=== PATIENT | female | born 1960 | race African-American/Black ===

== ENCOUNTER 2020-10-24 01:44 | Emergency (ER) | payer OTHER | END 2020-10-24 03:20 | disposition home or self-care (01) | LOC: FER 01:44 | DX: K11.20 Sialoadenitis, unspecified (principal); I10 Essential (primary) hypertension; E11.9 Type 2 diabetes mellitus without complications; Z88.0 Allergy status to penicillin; Z91.040 Latex allergy status | CPT/HCPCS: 99283 ==

== ENCOUNTER 2021-01-09 19:09 | Emergency (ER) | payer OTHER ==
[2021-01-09 19:48] LABS: BASOPHIL 0.4 % (0-2); EOSINOPHIL 1.3 % (0-5); HCT 46.2 % (37.0-47.0); HGB 15.7 g/dl (12.5-16.0); LYMPHOCYTE 44.4 % (15-48); MCH 29.7 pg (25.0-31.0); MCV 87.3 fL (78.0-100.0); MONOCYTE 5.7 % (0-12); MPV 10.1 fL (6.0-9.5); NEUTROPHIL 47.9 % (41-80); NRBC 0; PLT 308 K/uL (150-400); RBC 5.29 M/uL (4.20-5.40); RDW 12.8 % (11.5-14.0); WBC 9.2 K/uL (4.0-10.5)
[2021-01-09 19:54] LABS: INR 0.99 (0.9-1.2); PROTHROMBIN TIME 12.4 SECONDS (11.4-13.6); PTT 26.1 SECONDS (22.2-34.7)
[2021-01-09 19:55] LABS: D-DIMER 0.39 ug/mLFEU (0.00-0.41)
[2021-01-09 20:10] LABS: ALBUMIN 4.1 g/dL (3.4-5.0); BILIRUBIN - TOTAL 0.4 mg/dL (0.2-1.0); BUN/CREAT RATIO (CALC) 22.4 RATIO; CREATININE 1.16 mg/dL (0.51-0.95); GLOBULIN (CALCULATION) 5.1 g/dL; POTASSIUM 3.8 mmol/L (3.5-5.1); TOTAL PROTEIN 9.2 g/dL (6.4-8.2)
[2021-01-10] MEDS ORDERED: LOPRESSOR25 MG PO (00:45)
[2021-01-10] MEDS ORDERED: CYCLOBENZAPRINE10 MG PO (00:55)
== END 2021-01-10 01:13 | disposition home or self-care (01) ==
LOC: FER 19:09
PROVIDERS: Emergency Medicine Emergency Medical Services
DX: R00.2 Palpitations (principal); R00.0 Tachycardia, unspecified; R06.02 Shortness of breath; E11.9 Type 2 diabetes mellitus without complications; I10 Essential (primary) hypertension; Z88.0 Allergy status to penicillin; Z79.899 Other long term (current) drug therapy; Z79.84 Long term (current) use of oral hypoglycemic drugs
CPT/HCPCS: 36415; 71045; 80053; 84439; 84443; 84484; 85025; 85379; 85610; 85730; 93005; J7030